=== PATIENT | female | born 1990 | race Caucasian/White ===

== ENCOUNTER 2020-02-21 13:37 | Emergency (ER) | payer OTHER ==
[~2020-02-21] VITALS: Ht 162.6 cm; Wt 144.7 kg
== END 2020-02-21 17:41 | disposition home or self-care (01) ==
LOC: ED 13:37
DX: G43.109 Migraine with aura, not intractable, without status migrainosus (principal); Z88.5 Allergy status to narcotic agent
CPT/HCPCS: 96374; 96375; 99283-25; J1200; J1885; J2405; J2765; J7030

== ENCOUNTER 2020-03-21 09:32 | Emergency (ER) | payer OTHER ==
[~2020-03-21] VITALS: Ht 162.6 cm; Wt 144.7 kg
== END 2020-03-21 11:25 | disposition home or self-care (01) ==
LOC: ED 09:32
DX: S93.601A Unspecified sprain of right foot, initial encounter (principal); Z88.5 Allergy status to narcotic agent; W10.9XXA Fall (on) (from) unspecified stairs and steps, initial encounter
CPT/HCPCS: 73630; 99283-25

== ENCOUNTER 2021-04-12 00:24 | Emergency (ER) | payer OTHER ==
[~2021-04-12] VITALS: Ht 162.6 cm; Wt 143.6 kg
--- OUTSIDE RECORDS SUMMARY | 2021-04-12 00:28 | XMS ---
PreManage Notification: MARYANNE CORONA Security Photo Journalist Events No recent Security Events currently on file CRITERIA MET - [facility] CARE PROVIDERS [facility] Current PHONE: [phone] TAJ WORKMAN [facility] Current PHONE: Unknown Shey has no Care Guidelines for this patient. [place] VISIT COUNT (12 MO.) Sheri Francois TOTAL 1 NOTE: Visits indicate total known visits. ED/UCC VISIT TRACKING (12 MO.) 04/12/2021 00:26 [facility] [place] TYPE: Emergency COMPLAINT: - SHORTNESS OF BREATH, CHEST TIGHTNESS INPATIENT VISIT TRACKING (12 MO.) No inpatient visits to display in this time frame [id number]
[2021-04-12] MEDS ORDERED: AMPHETAMINE SAL20 MG PO (00:39)
[2021-04-12] MEDS ORDERED: AZITHROMYCIN500 MG PO (02:43)
[2021-04-12] MEDS ORDERED: VENTOLIN HFA18 GM INH (02:43)
== END 2021-04-12 04:53 | disposition home or self-care (01) ==
LOC: ED 00:24
DX: U07.1 COVID-19 (principal); J12.82 Pneumonia due to coronavirus disease 2019; Z88.5 Allergy status to narcotic agent; Z79.899 Other long term (current) drug therapy; Z23 Encounter for immunization
CPT/HCPCS: 71260; 80048; 84484; 84703; 85025; 99285-25; M0247; Q9967

== ENCOUNTER 2021-09-15 14:45 | Emergency (ER) | payer OTHER ==
[~2021-09-15] VITALS: Ht 162.6 cm; Wt 142.0 kg
[~2021-09-15 14:45] MED LIST: AMPHETAMINE SAL20 MG PO; AZITHROMYCIN500 MG PO; VENTOLIN HFA18 GM INH
--- OUTSIDE RECORDS SUMMARY | 2021-09-15 14:50 | XMS ---
PreManage Notification: MARYANNE CORONA Security Metal Reed Tuner Events No recent Security Events currently on file CRITERIA MET - [facility] CARE PROVIDERS SHERRON ANTON Physician Nitroglycerin Separator Operator Current PHONE: Unknown JUAN PABLO CANTRELL Nurse Practitioner 04/13/2021-Current PHONE: [phone] [facility] Current PHONE: Unknown Shey has no Care Guidelines for this patient. [place] VISIT COUNT (12 MO.) 1 [facility] 2 AYESHA Francois TOTAL 3 NOTE: Visits indicate total known visits. ED/UCC VISIT TRACKING (12 MO.) 09/15/2021 14:47 [facility] [place] TYPE: Emergency COMPLAINT: - HEADACHE, L SIDE FACE/ARM NUMBNESS, NAUSEA, DIZZY 07/11/2021 17:37 [facility] [place] TYPE: Emergency DIAGNOSES: - shortness of breath - Moderate persistent asthma with (acute) exacerbation - Acute upper respiratory infection, unspecified - Cough 04/12/2021 00:[address] [facility] [place] TYPE: Emergency COMPLAINT: - SHORTNESS OF BREATH, CHEST TIGHTNESS DIAGNOSES: - Encounter for immunization - Shortness of breath - Other jail (current) drug therapy - Pneumonia due to coronavirus disease 2019 - COVID-19 - Allergy status to narcotic agent INPATIENT VISIT TRACKING (12 MO.) No inpatient visits to display in this time frame [email or web address]
[2021-09-15] MEDS ORDERED: NASAL DECONGEST30 MG PO (15:06)
[2021-09-15] MEDS ORDERED: ZYRTEC10 M3 PO (15:06)
[2021-09-15] MEDS ORDERED: FLONASE ALLERG9.9 ML NAS (15:07)
[2021-09-15] MEDS ORDERED: REGLAN10 MG PO (16:56)
== END 2021-09-15 17:08 | disposition home or self-care (01) ==
LOC: ED 14:45
DX: G43.109 Migraine with aura, not intractable, without status migrainosus (principal); Z88.5 Allergy status to narcotic agent; Z79.899 Other long term (current) drug therapy
CPT/HCPCS: 70450; 80053; 85025; 96361; 96374; 96375; 99284-25; J1200; J1885; J2765; J7030

== ENCOUNTER 2023-02-03 19:58 | Emergency (ER) | payer OTHER ==
[~2023-02-03] VITALS: Ht 162.6 cm; Wt 151.5 kg
[~2023-02-03 19:58] MED LIST changes: +FLONASE ALLERG9.9 ML NAS; +NASAL DECONGEST30 MG PO; +REGLAN10 MG PO; +ZYRTEC10 M3 PO
--- OUTSIDE RECORDS SUMMARY | 2023-02-03 20:00 | XMS ---
PreManage Notification: MARYANNE CORONA Security Belly Dump Driver Events No recent Security Events currently on file CRITERIA MET - [facility] CARE PROVIDERS JUAN PABLO CANTRELL Nurse Practitioner 04/13/2021-Current PHONE: [phone] -Carlitos- Dentist: Hris Coordinator [facility] PHONE: [phone] -Socrates- Dentist: Hris Coordinator [facility] PHONE: [phone] SHERRON ANTON Campaign Manager Current PHONE: Unknown Shey has no Care Guidelines for this patient. [place] VISIT COUNT (12 MO.) 2 AYESHA Francois TOTAL 2 NOTE: Visits indicate total known visits. ED/UCC VISIT TRACKING (12 MO.) 02/03/2023 19:59 [facility] [place] TYPE: Emergency COMPLAINT: - SINUS PROBLEMS 12/06/2022 15:24 [facility] [place] TYPE: Emergency COMPLAINT: - HEADACHE DIAGNOSES: - Allergy status to narcotic agent - Headache, unspecified - motor room controller (current) use of inhaled steroids - Migraine, unspecified, not intractable, without status migrainosus - Other group home (current) drug therapy INPATIENT VISIT TRACKING (12 MO.) No inpatient visits to display in this time frame [id number]
[2023-02-03 21:31] LABS: INFLUENZA B NAA NEGATIVE (NEGATIVE); RESPIRATORY SYNCYTIAL VIR NAA NEGATIVE (NEGATIVE)
[2023-02-03] MEDS ORDERED: AMOX TR-K CLV1 EAC1 PO ×2 (21:49→21:52)
[2023-02-03] MEDS ORDERED: PREDNISONE20 MG PO (21:51)
[2023-02-03 22:02] VITALS: BP 138/65
== END 2023-02-03 22:02 | disposition home or self-care (01) ==
LOC: ED 19:58
PROVIDERS: Internal Medicine
DX: J01.80 Other acute sinusitis (principal); B96.89 Other specified bacterial agents as the cause of diseases classified elsewhere; Z88.5 Allergy status to narcotic agent; Z79.899 Other long term (current) drug therapy; Z20.822 Contact with and (suspected) exposure to COVID-19
CPT/HCPCS: 87502; 99283; J7512; U0002

== ENCOUNTER 2023-02-18 08:08 | Emergency (ER) | payer OTHER ==
[~2023-02-18] VITALS: Ht 162.6 cm; Wt 152.6 kg
[~2023-02-18 08:08] MED LIST changes: +AMOX TR-K CLV1 EAC1 PO; +PREDNISONE20 MG PO
--- OUTSIDE RECORDS SUMMARY | 2023-02-18 08:17 | XMS ---
PreManage Notification: MARYANNE CORONA Security Educational Audiologist Events No recent Security Events currently on file CRITERIA MET - [facility] - 2 Visits in 30 Days CARE PROVIDERS JUAN PABLO CANTRELL Nurse Practitioner 04/13/2021-Current PHONE: [phone] [facility]ist: Repairer Controller Tester [facility] PHONE: [phone] -Socrates- Dentist: Repairer Controller Tester [facility] PHONE: [phone] SHERRON ANTON Insulation Worker Furnace Installer Current PHONE: Unknown Shey has no Care Guidelines for this patient. [place] VISIT COUNT (12 MO.) 3 AYESHA Francois TOTAL 3 NOTE: Visits indicate total known visits. ED/UCC VISIT TRACKING (12 MO.) 02/18/2023 08:09 [facility] [place] TYPE: Emergency COMPLAINT: - R HIP PAIN 02/03/2023 19:59 [facility] [place] TYPE: Emergency COMPLAINT: - SINUS PROBLEMS DIAGNOSES: - Allergy status to narcotic agent - Contact with and (suspected) exposure to COVID-19 - Nasal congestion - Other acute sinusitis - Other correction (current) drug therapy - Other specified bacterial agents as the cause of diseases classified elsewhere 12/06/2022 15:24 [facility] [place] TYPE: Emergency COMPLAINT: - HEADACHE DIAGNOSES: - Allergy status to narcotic agent - Headache, unspecified - principal consultant (current) use of inhaled steroids - Migraine, unspecified, not intractable, without status migrainosus - Other beating machine operator (current) drug therapy INPATIENT VISIT TRACKING (12 MO.) No inpatient visits to display in this time frame [id number]
[2023-02-18 08:43] VITALS: BP 127/54
== END 2023-02-18 08:46 | disposition home or self-care (01) ==
LOC: ED 08:08
DX: M25.551 Pain in right hip (principal); F90.9 Attention-deficit hyperactivity disorder, unspecified type; Z88.5 Allergy status to narcotic agent; Z79.899 Other long term (current) drug therapy
CPT/HCPCS: 99283; A9270

== ENCOUNTER 2023-04-21 01:32 | Emergency (ER) | payer OTHER ==
[~2023-04-21] VITALS: Ht 162.6 cm; Wt 152.6 kg
--- OUTSIDE RECORDS SUMMARY | 2023-04-21 01:34 | XMS ---
PreManage Notification: MARYANNE CORONA Security Ase Master Mechanic Events No recent Security Events currently on file CRITERIA MET - [employer] CARE PROVIDERS JUAN PABLO CANTRELL Nurse Practitioner 04/13/2021-Current PHONE: [phone] -Carlitos- Dentist: Pc Technician [facility] PHONE: [phone] -Socrates- Dentist: Pc Technician [facility] PHONE: [phone] SHERRON ANTON Cardiovascular Physician Assistant Current PHONE: Unknown [facility] Clinic[facility]Center[facility] Current WORKERS CLINIC \[facility] PHONE: [phone] Shey has no Care Guidelines for this patient. [place] VISIT COUNT (12 MO.) [address] [facility] TOTAL 4 NOTE: Visits indicate total known visits. ED/UCC VISIT TRACKING (12 MO.) 04/21/2023 01:33 [facility] [place] TYPE: Emergency COMPLAINT: - CHEST DISCOMFORT 02/18/2023 08:09 [facility] [place] TYPE: Emergency COMPLAINT: - R HIP PAIN DIAGNOSES: - Allergy status to narcotic agent - Attention-deficit hyperactivity disorder, unspecified type - Other usp (current) drug therapy - Pain in right hip 02/03/2023 19:59 [facility] [place] TYPE: Emergency COMPLAINT: - SINUS PROBLEMS DIAGNOSES: - Allergy status to narcotic agent - Contact with and (suspected) exposure to COVID-19 - Nasal congestion - Other acute sinusitis - Other watermaster (current) drug therapy - Other specified bacterial agents as the cause of diseases classified elsewhere 12/06/2022 15:[address] [facility] [place] TYPE: Emergency COMPLAINT: - HEADACHE DIAGNOSES: - Allergy status to narcotic agent - Headache, unspecified - terminal superintendent (current) use of inhaled steroids - Migraine, unspecified, not intractable, without status migrainosus - Other watermaster (current) drug therapy INPATIENT VISIT TRACKING (12 MO.) No inpatient visits to display in this time frame [id number]
[2023-04-21 01:53] LABS: EOSINOPHILS 2.7 % (0-6); HEMATOCRIT 37.8 % (35.0-50.0); HEMOGLOBIN 13.2 g/dL (12.0-18.0); LYMPHOCYTES 19.9 % (24-44); MCH 31.3 (27-36); MCV 89.3 fl (81-99); MONOCYTES 9.4 % (0-12); PLATELET COUNT 260 K/uL (140-440); RBC 4.23 M/ul (4.3-5.7); RDW 14.1 (10.5-15.0)
[2023-04-21 02:03] LABS: INR 0.89 (0.80-1.30); PROTIME 11.7 Sec (11.2-14.2)
[2023-04-21 02:11] LABS: ALBUMIN 3.2 g/dL (3.4-5.0); ALBUMIN/GLOBULIN RATIO 0.86 (1.1-2.4); ANION GAP 15.7 (7-21); BILIRUBIN, TOTAL 0.3 ng/dL (0.2-1.0); BUN/CREATININE RATIO 16.3 (6.0-28.6); CALCIUM 8.9 mg/dL (8.5-10.1); CREATININE, SERUM 0.92 mg/dL (0.55-1.02); MAGNESIUM 1.8 mg/dL (1.8-2.4); POTASSIUM 3.7 mmol/L (3.5-5.1); PROTEIN, TOTAL 6.9 g/dL (6.4-8.2)
[2023-04-21] MEDS ORDERED: CYCLOBENZAPRINE10 MG PO (03:34)
[2023-04-21] MEDS ORDERED: CYCLOBENZAPRINE HCL 10 MG HOME.PACK PO ONE (03:45)
[2023-04-21 03:49] VITALS: BP 115/62
--- NOTE | 2023-04-23 11:55 | EKG ---
[facility] [address] [place], [place] [address] Signed Normal sinus rhythm Normal ECG No previous ECGs available Confirmed by Chloe Briscoe MD ([id number]) on 04/23/2023 11:55:40 AM Electronically Signed By: CHLOE BRISCOE 04/23/23 1155 PATIENT NAME: MARYANNE CORONA Electrocardiogram DATE OF : [birth year] PHYSICIAN: CHLOE BRISCOE REPORT #: [id number] REPORT IS CONFIDENTIAL AND NOT TO BE RELEASED WITHOUT AUTHORIZATION
== END 2023-04-21 03:50 | disposition home or self-care (01) ==
LOC: ED 01:32
PROVIDERS: Family Medicine
DX: L02.213 Cutaneous abscess of chest wall (principal); G43.909 Migraine, unspecified, not intractable, without status migrainosus; F90.9 Attention-deficit hyperactivity disorder, unspecified type; Z86.16 Personal history of COVID-19; Z88.5 Allergy status to narcotic agent
CPT/HCPCS: 36415; 71045; 80053; 83735; 84484; 85025; 85379; 85610; 99285-25